=== PATIENT | male | born 1990 | race Caucasian/White ===

== ENCOUNTER 2016-11-19 17:00 | Emergency (ER) | payer SELFPAY ==
[2016-11-19] MEDS ORDERED: Ibuprofen TAB* 600 MG PO ONE (18:14)
--- NOTE | 2016-11-19 19:08 | RAD ---
Indication: LEFT lower leg and ankle pain. Remote ipsilateral ankle fracture. Comparison: No relevant prior exams available on the [facility] [place] [facility] PACS for comparison. Technique: AP, mortise, and lateral views LEFT ankle. AP and lateral views LEFT lower leg Report: Severe soft tissue swelling over both the medial and lateral malleoli as well as talocrural joint effusion. Negative for fracture or malalignment at the ankle or lower leg. 1.4 cm maximum dimension sclerotic lesion at the lateral distal metaphyseal cortex of the tibia consistent with a ossified nonossifying fibroma or bone island without concern. IMPRESSION: 1. Given magnitude of soft tissue swelling and presence of talocrural joint effusion consider potential medial and lateral ankle ligament injuries. 2. Negative for fracture or articular malalignment at the ankle or lower leg.
--- NOTE | 2016-11-19 19:08 | RAD ---
Indication: LEFT lower leg and ankle pain. Remote ipsilateral ankle fracture. Comparison: No relevant prior exams available on the [facility] PACS for comparison. Technique: AP, mortise, and lateral views LEFT ankle. AP and lateral views LEFT lower leg Report: Severe soft tissue swelling over both the medial and lateral malleoli as well as talocrural joint effusion. Negative for fracture or malalignment at the ankle or lower leg. 1.4 cm maximum dimension sclerotic lesion at the lateral distal metaphyseal cortex of the tibia consistent with a ossified nonossifying fibroma or bone island without concern. IMPRESSION: 1. Given magnitude of soft tissue swelling and presence of talocrural joint effusion consider potential medial and lateral ankle ligament injuries. 2. Negative for fracture or articular malalignment at the ankle or lower leg.
[2016-11-19 19:29] VITALS: BP 124/74
--- NOTE | 2016-11-19 22:08 | UC ---
Dilan Horowitz Rebecca, scribed for Luis Desai MD on 11/19/16 at 1820 . Lower Extremity/Ankle HPI - HPI Summary HPI Summary: Pt is a 26 y/o M who presents to ED c/o L ankle pain and swelling s/p injury. Pt reports at 1600 he was moving a recliner on stairs and fell from about 2.5 feet, hitting the bottom step with his heel. States he heard a pop and his leg "instantly folded." Pain began immediately upon incident and has been constant since onset. Pain is in the posterior side of the L ankle with radiation up the posterior surface of the LLE. Pain is ranked 10/10 and characterized as throbbing and burning. Sx aggravated by movement, alleviated by nothing. Cannot bear weight. - History of Current Complaint Chief Complaint: UCLowerExtremity Stated Complaint: LEFT ANKLE INJURY Time Seen by Provider: 11/19/16 18:08 Hx Obtained From: Patient Onset/Duration: Lasting Hours, Still Present Severity Currently: Severe Pain Intensity: 10 Pain Scale Used: 0-10 Numeric Aggravating Factor(s): Other - Movement Alleviating Factor(s): Nothing Able to Bear Weight: No - Allergies/Home Medications Allergies/Adverse Reactions: Allergies Allergy/AdvReac Type Severity Reaction Status Date / Time Erythromycin Allergy Severe throat Verified 11/19/16 17:39 swelling Cefaclor [From Ceclor] Allergy Intermediate Hives Verified 11/19/16 17:39 Methylphenidate Allergy Intermediate Rash Verified 11/19/16 17:39 [From Concerta] Citalopram Allergy Hives Verified 11/19/16 17:39 Home Medications: Home Medications NK [No Home Medications Reported] 11/19/16 [History Confirmed 11/19/16] PMH/Surg Hx/FS Hx/Imm Hx Previously Healthy: Yes Other History Of: Negative For: HIV, Hepatitis B, Hepatitis C, Anticoagulant Therapy - Surgical History Surgical History: None - Family History Known Family History: Positive: Cardiac Disease, Hypertension - Social History Alcohol Use: Occasionally Substance Use Type: None Smoking Status (MU): Current Some Day Smoker Type: Cigars Amount Used/How Often: 1 ppd Length of Time of Smoking/Using Tobacco: 6 yrs Have You Smoked in the Last Year: Yes - Immunization History Most Recent Tetanus Shot: 2011 Review of Systems Constitutional: Negative Skin: Negative Eyes: Negative ENT: Negative Respiratory: Negative Cardiovascular: Negative Gastrointestinal: Negative Genitourinary: Negative Motor: Negative Neurovascular: Negative Musculoskeletal: Other: - L ankle pain and swelling s/p injury Neurological: Negative Psychological: Negative All Other Systems Reviewed And Are Negative: Yes Physical Exam Triage Information Reviewed: Yes Vital Signs: Initial Vital Signs Temp 98.9 F 11/19/16 17:34 Pulse 74 11/19/16 17:34 Resp 16 11/19/16 17:34 BP 132/91 11/19/16 17:34 Pulse Ox 99 11/19/16 17:34 Vital Signs Reviewed: Yes - Additional Comments The patient is well-nourished and in obvious distress. The skin is warm and dry. Has ecchymosis on the R eye. Respiratory: Chest is non-tender. Lungs are clear to auscultation and breath sounds are symmetrical and equal. Cardiovascular: Hear is regular rate and rhythm. There is no murmur or rub auscultated. There is no peripheral edema and pulses are symmetrical and equal. Abdomen: The abdomen is soft and non-tender. There are normal bowel sounds heard in all four quadrants and there is no organomegaly palpated. Musculoskeletal: There is no back pain noted. There is good capillary refill. Exam of the LLE shows no tenderness of the knee, marked swelling of the posterior tibia. The Achilles tendon is intact. Marked tenderness and marked edema over the medial and lateral malleolus. Questionable laxity of both the medial and lateral ligaments. GOod pulses distally. FROM. SKin is intact. Neurological: Patient is alert and oriented to person, place and time. The patient has symmetrical motor strength in all four extremities. Cranial nerves are grossly intact. Deep tendon reflexes are symmetrical and equal in all four extremities. Psychiatric: The patient has an appropriate affect and does not exhibit any anxiety or depression. Diagnostics - Radiology Left Ankle XR Radiology Interpretation Completed By: Radiologist - 1. Given magnitude of soft tissue swelling and presence of talocrural joint effusion consider potential medial and lateral ankle ligament injuries. 2. Negative for fracture or articular malalignment at the ankle or lower leg. Lower Left Leg XR Radiology Interpretation Completed By: Radiologist - 1. Given magnitude of soft tissue swelling and presence of talocrural joint effusion consider potential medial and lateral ankle ligament injuries. 2. Negative for fracture or articular malalignment at the ankle or lower leg. Re-Evaluation - Re-Evaluation First Eval Re-Evaluation Time: 19:37 Change: Improved Comment: Discussed XR results with the patient and the plan of treatment. Patient denies an Rx for pain medication. Lower Extremity Course/Dx - Course Course Of Treatment: Pt is a 26 y/o M who presents to ED c/o constant L ankle pain and swelling s/p injury at 1600 from falling approxiamtely 2.5 feet down stairs. Pt hit the bottom step with his heel. States he heard a pop and his leg "instantly folded." Pain is in the posterior side of the L ankle with radiation up the posterior surface of the LLE. Pain is ranked 10/10 and characterized as throbbing and burning. Sx aggravated by movement, alleviated by nothing. Cannot bear weight. Left Ankle and Left Lower Leg XR reveal "1. Given magnitude of soft tissue swelling and presence of talocrural joint effusion. consider potential medial and lateral ankle ligament injuries. 2. Negative for fracture or articular malalignment at the ankle or lower leg." He will be D/C to home with Dx of left ankle sprain, a knee immobilizer and a follow up with orthopedics. He understands and agrees. - Differential Dx/Diagnosis Differential Diagnosis/HQI/PQRI: Dislocation, Fracture (Closed), Sprain, Strain Provider Diagnoses: Left ankle sprain Discharge - Discharge Plan Condition: Stable Disposition: HOME Patient Education Materials: Ankle Sprain (ED) Referrals: Sumeet Daniel DO [Medical Doctor] - (Call for a follow up appointment. ) Additional Instructions: Rest, ice and elevate the ankle. The documentation as recorded by the Dilan luong Rebecca accurately reflects the service I personally performed and the decisions made by me, Luis Desai MD.
== END 2016-11-19 19:50 | disposition home or self-care (01) ==
LOC: UCCORT 17:00
DX: S93.402A Sprain of unspecified ligament of left ankle, initial encounter (principal); W10.9XXA Fall (on) (from) unspecified stairs and steps, initial encounter; Z88.3 Allergy status to other anti-infective agents; F17.210 Nicotine dependence, cigarettes, uncomplicated
CPT/HCPCS: 99213; A9270-GY; G0463